=== PATIENT | female | born 2000 | race Caucasian/White ===

== ENCOUNTER 2023-02-19 16:39 | Emergency (ER) | payer OTHER, SELFPAY ==
--- NOTE | ~2023-02-19 | CT_ITS ---
EXAMINATION: CT HEAD WITHOUT CONTRAST CLINICAL INFORMATION: Headache and visual changes COMPARISON: None available. TECHNIQUE: Contiguous axial imaging was performed from the skull base to vertex without intravenous administration of contrast. This CT examination was performed using dose optimization techniques as appropriate, variously including the following: *Automated exposure control *Adjustment of mA and/or kV according to patient size (this includes techniques or standardized protocols for targeted exams where dose is matched to indication/reason for exam; i.e. extremities or head) *Use of iterative reconstruction technique DLP: 624 mGy-cm FINDINGS: No midline shift. No mass effect. No hemorrhage. The posterior fossa risk grossly within normal limits. The basilar cisterns are patent. There is no extra-axial collection. The nunn-white matter is maintained. The ventricular system is within normal limits. Review of the bone windows demonstrates grossly clear sinuses. CT/CT head/brain wo IV con IMPRESSION: Negative acute noncontrast CT of the brain. If further evaluation is warranted recommend MRI.
[2023-02-19 16:41] VITALS: BP 146/96; PULSE 110; RESP 18; TEMP 36.7; O2SAT 98; BMI 39.3
--- NOTE | 2023-02-19 16:42 | ED.GENADULT ---
HPI - General Adult General Chief complaint: Headache Stated complaint: vision loss Time Seen by Provider: 02/19/23 17:11 Source: patient, RN notes reviewed and old records reviewed Mode of arrival: ambulatory Limitations: no limitations History of Present Illness HPI narrative: 22-year-old female who denies any past medical history presents for evaluation of headache. Patient reports that around 4:00 p.m. today about an hour prior to my evaluation she developed a pain in the center forehead. She states that she had some peripheral vision loss on the right. She states that she is able to see the very extreme right temporal peripheral side and then has a blind spot before being able to see again Denies any history of headaches Denies any trauma to the head or neck She is not on control Her pain is a 6/10 Patient reports that she did have some trouble speaking but this has completely resolved only lasted a couple of minutes Related Data Allergies Allergy/AdvReac Type Severity Reaction Status Date / Time No Known Allergies Allergy Verified 02/19/23 16:44 Review of Systems Constitutional: Constitutional: Reports as per HPI, Denies chills, Denies fatigue, Denies fever(s) and Reports headache(s) Eyes: Eyes: Reports blind spots, Denies blurry vision, Reports change in vision, Denies diplopia and Reports loss of peripheral vision ENT: Reports headache(s) Cardiovascular: Cardiovascular: Denies chest pain and Denies dyspnea Respiratory: Respiratory: Denies cough and Denies dyspnea Gastrointestinal: Gastrointestinal: Denies abdominal pain, Denies constipation and Denies vomiting Genitourinary: Genitourinary: Denies dysuria Neurologic: Reports headache(s) and Denies focal weakness Endocrine: Endocrine: Denies fatigue PMFSH Social History Social History Alcohol intake: never Smoked in Last 30 Days: No Use of substances other than those prescribed or required for medical reasons: No Advance Directives: No Advance Directives Information Provided: Yes Physical Exam ED Vital Signs: Vital Signs - 24 hr 02/19/23 16:41 Temperature 98.1 F Pulse Rate 110 H Respiratory Rate 18 Blood Pressure 146/96 H Pulse Oximetry 98 Oxygen Delivery Method Room Air BMI result Body Mass Index 39.3 Const General: healthy appearing, comfortable, no acute distress, alert and awake Nutritional Appearance: well nourished Orientation/consciousness: patient oriented x3 HENMT Head: Yes normocephalic and Yes atraumatic Throat: Yes posterior oropharynx normal Eyes Other: Patient is visual carvalho are intact from about 180? on the temporal side to about 160?. She is an unable to identify structures from about 160? to about 135?. Visual Carvalho: visual carvalho abnormal by confrontation Eyelids: Yes eyelids normal Conjunctivae: conjunctivae normal Sclerae: sclerae normal Corneas: corneas normal Pupils: Equal, round and reactive pupils present EOM: EOMs intact bilaterally Neck Neck: Yes full ROM and No no meningeal signs Resp Effort & Inspection: normal respiratory effort, able to speak in complete sentences and not labored Skin General skin exam: no rashes or lesions noted and elasticity normal Neuro General: patient oriented x3 and No no meningeal signs Cranial nerves: Yes CN's II-XII intact bilaterally, Yes Equal, round and reactive pupils present and Yes Bilaterally intact EOM present Cognition (Neuro): normal cognition Extrem Other: Moving all extremities well without any obvious deformities Course Course Course Narrative: RME performed by Aidee Obando PA-C. Patient is a 22 year old assigned female at presenting to the emergency department with right outside peripheral vision loss. Labs and imaging ordered. Patient states that she suddenly got a headache and lost vision in her right peripheral. Patient placed back in the waiting room pending room availability and results. Reevaluation(s) Reevaluation #1: Patient's CT scan unremarkable. [place] [address]. Patient reports that her vision has completely resolved. She still has a mild headache. She still has most her IV fluids remaining but did receive her IV medications. Patient reports nursing staff that with the IV in her arm she was having ?a panic attack. ? Patient demanded that the IV be removed in reports that she wants to go home. She reports feeling much better. The patient will be discharged at this time Time: 19:34 Medications Administered Discontinued Medications Generic Name Dose Route Start Last Admin Trade Name Freq PRN Reason Stop Dose Admin Diphenhydramine HCl 25 mg 02/19/23 17:27 02/19/23 19:07 Diphenhydramine Hcl 50 Mg/Ml Vial IVPUSH 02/19/23 17:28 25 mg ONCE ONE Administration Sodium Chloride 1,000 mls @ 999 mls/hr 02/19/23 17:30 02/19/23 19:07 Ns IV 02/19/23 18:30 999 mls/hr .Q1H1M ESME Administration Ketorolac Tromethamine 30 mg 02/19/23 18:09 02/19/23 19:06 Ketorolac Tromethamine 30 Mg/Ml Vial IVPUSH 02/19/23 18:10 30 mg ONCE ONE Administration Metoclopramide HCl 10 mg 02/19/23 17:27 02/19/23 19:07 Metoclopramide Hcl 10 Mg/2 Ml Vial IVPUSH 02/19/23 17:28 10 mg ONCE ONE Administration Medical Decision Making Medical Decision Making [facility] Narrative: Patient denies any history of headaches or migraines. She has no medical history whatsoever. There is a risk factors for CVA. Less likely to be right artery occlusion as the patient does not have complete vision loss. She also does not have complete right temporal hemianopsia. Her symptoms are most likely related to a complex migraine. Will get a CT scan the brain, treated with IV fluids, Reglan, Benadryl. We will hold Toradol pending CT brain Differential Diagnosis Complex migraine CVA Retinal artery occlusion Right-sided hemianopsia Lab Data [facility] Lab Attestation statement: I reviewed the patient's lab results. 02/19/23 19:00 02/19/23 19:00 Labs: Lab Results 02/19/23 02/19/23 02/19/23 Range/Units 19:00 19:00 19:00 WBC 15.5 H (4.8-10.8) X10*3/uL RBC 4.81 (4.20-5.50) X10*6/uL Hgb 14.8 (12.0-16.0) g/dl Hct 43.5 (37.0-47.0) % MCV 90.4 (80.0-98.0) fL MCH 30.8 (27.0-33.0) pg MCHC 34.0 (31.0-35.0) g/dl RDW 12.2 (11.0-16.0) % Plt Count 343 (160-400) X10*3/uL MPV 10.3 (9.4-12.3) fL Immature Gran % (Auto) 0.5 H (0.0-0.4) % Neut % (Auto) 84.0 H (45-73) % Lymph % (Auto) 10.9 L (20-40) % Waldo % (Auto) 3.7 (2-11) % Eos % (Auto) 0.4 (0-4) % Baso % (Auto) 0.5 (0-2) % Lymph # (Auto) 1.7 (1.2-4.9) X10*3/uL Waldo # (Auto) 0.6 (0.1-1.2) X10*3/uL Eos # (Auto) 0.1 (0.0-0.4) X10*3/uL Baso # (Auto) 0.1 (0.0-0.2) X10*3/uL Abs Immat Gran (auto) 0.08 H (0.00-0.03) X10*3/uL Absolute Neuts (auto) 13.0 H (2.0-8.3) x10*3/uL Absolute Nucleated RBC 0.000 (0.0-0.012) X10*3/uL Nucleated RBC % (auto) 0.0 (0.0-0.2) /100WBC Sodium 141 (135-145) mmol/L Potassium 4.1 (3.3-5.1) mmol/L Chloride 107 (96-108) mmol/L Carbon Dioxide 24 (22-29) mmol/L Anion Gap 14 (12-20) BUN 8 L (9-16) mg/dL Creatinine 0.73 (0.5-1.4) mg/dL Estim Creat Clear Calc 129.5 Estimated GFR > 60 Random Glucose 111 (60-115) mg/dL Calcium 10.0 (8.4-10.2) mg/dL Magnesium 2.0 (1.6-2.6) mg/dL Total Bilirubin 0.5 (0.0-1.0) mg/dL AST 26 (5-31) U/L ALT 39 H (0-31) U/L Alkaline Phosphatase 85 (39-117) U/L C-Reactive Protein 1.10 H (< or = 0.50) mg/dL Total Protein 7.6 (6.5-8.0) g/dL Albumin 4.5 (3.5-5.0) g/dL COVID-19 ([facility]) Negative (Negative) COVID-19 Clin Com See Note Discharge Plan Discharge Clinical Impression: Headache Patient Disposition: Home, Self-Care Instructions: Acute Headache (ED) Additional Instructions: Your CT scan did not show any concerning findings Your symptoms were most likely related to a complex migraine You may use Motrin or Tylenol for your pain Follow-up with your primary doctor
[2023-02-19] MEDS: Ketorolac Tromethamine 30 MG/ML VIAL IVPUSH (19:06)
[2023-02-19] MEDS: 0.9 % Sodium Chloride 1,000 ML 999 ML IV (19:07)
[2023-02-19] MEDS: diphenhydrAMINE HCL 50 MG/ML VIAL 25 MG IVPUSH (19:07)
[2023-02-19] MEDS: Metoclopramide HCl 10 MG/2 ML VIAL IVPUSH (19:07)
[2023-02-19 19:10] LABS: MANUAL DIFF FLAG NO
[2023-02-19 19:12] LABS: Basophils Absolute Auto 0.1 X10*3/uL (0.0-0.2); Basophils Percent Auto 0.5 % (0-2); Eosinophils Absolute Auto 0.1 X10*3/uL (0.0-0.4); Eosinophils Percent Auto 0.4 % (0-4); Hematocrit 43.5 % (37.0-47.0); Hemoglobin 14.8 g/dl (12.0-16.0); Imm Gran Abs Auto 0.08 X10*3/uL (0.00-0.03); Imm Gran Pct Auto 0.5 % (0.0-0.4); Lymphocytes Absolute Auto 1.7 X10*3/uL (1.2-4.9); Lymphocytes Percent Auto 10.9 % (20-40); Mean Corpuscular Hemoglobin 30.8 pg (27.0-33.0); Mean Corpuscular Volume 90.4 fL (80.0-98.0); Mean Platelet Volume 10.3 fL (9.4-12.3); Monocytes Absolute Auto 0.6 X10*3/uL (0.1-1.2); Monocytes Percent Auto 3.7 % (2-11); Platelet Count 343 X10*3/uL (160-400); Red Blood Count 4.81 X10*6/uL (4.20-5.50); Red Cell Distribution Width 12.2 % (11.0-16.0); White Blood Count 15.5 X10*3/uL (4.8-10.8)
[2023-02-19 19:27] LABS: Alanine Aminotransferase 39 U/L (0-31); Albumin Level 4.5 g/dL (3.5-5.0); Alkaline Phosphatase 85 U/L (39-117); Anion Gap 14 (12-20); Aspartate Amino Transferase 26 U/L (5-31); Bilirubin Total 0.5 mg/dL (0.0-1.0); Blood Urea Nitrogen 8 mg/dL (9-16); COVID-19 Test Negative (Negative); Carbon Dioxide 24 mmol/L (22-29); Chloride 107 mmol/L (96-108); Creatinine Clr Calc Pharmacy 129.5; Estimated Glomerular Filt Rate > 60; Glucose Random 111 mg/dL (60-115); IDNOW Serial# 55D5AD1C; Potassium 4.1 mmol/L (3.3-5.1); Sodium 141 mmol/L (135-145); Total Protein 7.6 g/dL (6.5-8.0)
--- NOTE | 2023-02-19 19:30 | PC.NURSE ---
Patient called this nurse into room and told this nurse that she wants her IV out and that she just wants to go home at this time. Explained to patient reasoning behind the fluids and patient still adamant about getting IV taken out. Will let provider know.
[2023-02-19 19:38] LABS: HCG Quantitative < 2 mIU/mL
[2023-02-19 19:40] VITALS: BP 117/76; PULSE 87; RESP 16; O2SAT 96
[2023-02-19 19:56] LABS: Erythrocyte Sedimentation Rate 7 MM/HR (0-20)
== END 2023-02-19 19:40 | disposition home or self-care (01) ==
PROVIDERS: Physician Assistant Medical; Emergency Provider Emergency Medicine
DX: R51.9 Headache, unspecified (principal); Z20.822 Contact with and (suspected) exposure to COVID-19; H54.7 Unspecified visual loss
CPT/HCPCS: 36415; 70450; 80053; 83735; 84702; 85025; 85652; 86140; 87635; 96374; 96375; 99284; J1200; J1885; J2765